=== PATIENT | male | born 1985 | race Caucasian/White ===

== ENCOUNTER 2019-07-30 09:17 | Emergency (ER) | payer BC, MEDICAID ==
[~2019-07-30] VITALS: Ht 180.3 cm; Wt 82.0 kg
[2019-07-30] MEDS ORDERED: MORPHINE SULFATE 4 MG/ML CPJ (NOT FOR IM USE) IV STA (10:34)
[2019-07-30] MEDS ORDERED: SODIUM CHLORIDE 0.9% 1,000 ML IV ONE (10:34)
[2019-07-30] MEDS ORDERED: KETOROLAC 30MG/ML VIAL IV STA (10:34)
[2019-07-30] MEDS ORDERED: ONDANSETRON HCL 4MG/2ML INJ IV STA (10:34)
[2019-07-30 10:41] LABS: BASOPHILS % 0.4 % (0.0-2.0); EOSINOPHILS % 3.3 % (0.0-5.0); HEMATOCRIT. 43.3 % (42.0-52.0); HEMOGLOBIN. 14.7 g/dL (14.0-18.0); LYMPHOCYTES % 34.1 % (20.0-50.0); MEAN CORPUSCULAR HEMOGLOBIN 30.8 pg (28.0-32.0); MEAN PLATELET VOLUME 8.5 fl (7.4-10.4); MONOCYTES % 11.3 % (2.0-8.0); NEUTROPHILS % 50.9 % (40.0-76.0); PLATELET 204 x1000/uL (130-400); RED BLOOD CELL COUNT 4.76 mill/uL (4.7-6.1); RED CELL DISTRIBUTION WIDTH 13.2 % (11.6-14.6)
[2019-07-30 10:47] LABS: CHLORIDE 103 mEq/L (98-107)
[2019-07-30 10:48] LABS: CLARITY URINE CLEAR (CLEAR); COLOR URINE YELLOW (YELLOW); KETONES URINE NEGATIVE (NEGATIVE); LEUKOCYTE ESTERASE URINE NEGATIVE (NEGATIVE); NITRITE URINE NEGATIVE (NEGATIVE); OCCULT BLOOD URINE NEGATIVE (NEGATIVE); PH URINE 6.5 (4.5-8.0); PROTEIN URINE 1+ (NEGATIVE)
[2019-07-30 11:03] LABS: PROTHROMBIN TIME 10.5 sec (9.6-11.0)
[2019-07-30 13:37] VITALS: BP 108/64
== END 2019-07-30 13:38 | disposition home or self-care (01) ==
LOC: ER 11:08
DX: R10.9 Unspecified abdominal pain (principal)
CPT/HCPCS: 36415; 71045; 74176; 80053; 81003; 83690; 84484; 85025; 85610; 93005; 96374; 96375; 99285; J1885; J2270; J2405; J7030

== ENCOUNTER 2022-07-29 09:29 | Emergency (ER) | payer BC, MEDICAID ==
[~2022-07-29] VITALS: Ht 175.3 cm; Wt 91.0 kg
[2022-07-29 09:40] VITALS: BP 135/90
== END 2022-07-29 17:34 | disposition left against medical advice (07) ==
LOC: ER 10:21
DX: Z53.21 Procedure and treatment not carried out due to patient leaving prior to being seen by health care provider (principal)